=== PATIENT | female | born 1975 | race African-American/Black ===

== ENCOUNTER 2019-08-01 12:56 | Emergency (ER) | payer MEDICAID, OTHER ==
[~2019-08-01] VITALS: Ht 162.6 cm; Wt 82.0 kg
[~2019-08-01 12:56] MED LIST: ASPI-1393; HYDR25TA; LISI10TA
[2019-08-01 14:44] VITALS: BP 136/74
== END 2019-08-01 14:45 | disposition home or self-care (01) ==
LOC: ER 12:56
DX: S80.862A Insect bite (nonvenomous), left lower leg, initial encounter (principal); W57.XXXA Bitten or stung by nonvenomous insect and other nonvenomous arthropods, initial encounter; Y93.89 Activity, other specified; Y92.89 Other specified places as the place of occurrence of the external cause; Y99.8 Other external cause status; F17.290 Nicotine dependence, other tobacco product, uncomplicated; F12.10 Cannabis abuse, uncomplicated; I10 Essential (primary) hypertension; I25.2 Old myocardial infarction; Z98.890 Other specified postprocedural states; Z79.82 Long term (current) use of aspirin; Z79.899 Other long term (current) drug therapy
CPT/HCPCS: 99283

== ENCOUNTER 2019-09-04 14:02 | Emergency (ER) | payer MEDICAID ==
[~2019-09-04] VITALS: Ht 162.6 cm; Wt 73.0 kg
[2019-09-04 14:13] VITALS: BP 165/97
[2019-09-04] MEDS ORDERED: CLOP75TA4 PO (14:18)
[2019-09-04] MEDS ORDERED: ATOR-2 PO (14:18)
== END 2019-09-05 02:00 | disposition left against medical advice (07) ==
LOC: ER 14:02
DX: R07.89 Other chest pain (principal); Z53.21 Procedure and treatment not carried out due to patient leaving prior to being seen by health care provider
CPT/HCPCS: 93005

== ENCOUNTER 2019-09-11 14:49 | Emergency (ER) | payer MEDICAID ==
[~2019-09-11] VITALS: Ht 167.6 cm; Wt 91.0 kg
[~2019-09-11 14:49] MED LIST changes: -ASPI-1393; +ASPI-1497; +ATOR-2 PO; +CLOP75TA4 PO
[2019-09-11 15:19] VITALS: BP 136/108
[2019-09-11] MEDS ORDERED: LIDOCAINE 5% PATCH TOP STA (17:20)
[2019-09-11] MEDS ORDERED: HYDROCODONE/ACETAMINOPHEN 10/325MG TABLET PO ONE (17:30)
[2019-09-11] MEDS ORDERED: KETOROLAC 30MG/ML VIAL IM ONE (17:30)
== END 2019-09-11 19:28 | disposition home or self-care (01) ==
LOC: ER 14:58
DX: S43.401A Unspecified sprain of right shoulder joint, initial encounter (principal); M62.830 Muscle spasm of back; I10 Essential (primary) hypertension; I25.10 Atherosclerotic heart disease of native coronary artery without angina pectoris; F17.200 Nicotine dependence, unspecified, uncomplicated; X58.XXXA Exposure to other specified factors, initial encounter; Y93.9 Activity, unspecified; Y92.9 Unspecified place or not applicable; Z79.82 Long term (current) use of aspirin
CPT/HCPCS: 72100; 73030; 96372; 99283; 99406; J1885

== ENCOUNTER 2021-06-14 11:17 | Emergency (ER) | payer MEDICAID ==
[~2021-06-14] VITALS: Ht 167.6 cm; Wt 79.0 kg
[~2021-06-14 11:17] MED LIST changes: +CLOP-31 PO; -CLOP75TA4 PO
[2021-06-14] MEDS ORDERED: LEVETIRACETAM 500MG PREMIX 100 ML IV ONE (11:45)
[2021-06-14 12:20] VITALS: BP 135/85
[2021-06-14 12:45] LABS: BASOPHILS % 1.1 % (0.0-2.0); HEMATOCRIT. 35.5 % (36.0-48.0); HEMOGLOBIN. 11.7 g/dL (12.0-16.0); LYMPHOCYTES % 30.7 % (20.0-50.0); MEAN CORPUSCULAR HEMOGLOBIN 28.1 pg (28.0-32.0); MEAN CORPUSCULAR VOLUME 85.1 fL (81.0-99.0); MEAN PLATELET VOLUME 9.3 fl (7.4-10.4); MONOCYTES % 12.5 % (2.0-8.0); NEUTROPHILS % 52.7 % (40.0-76.0); PLATELET 203 x1000/uL (130-400); RED BLOOD CELL COUNT 4.18 mill/uL (4.2-5.4); RED CELL DISTRIBUTION WIDTH 16.4 % (11.6-14.6)
[2021-06-14] MEDS ORDERED: IOHEXOL-350 100 ML BOTTLE ONE (12:51)
[2021-06-14 12:52] LABS: PROTHROMBIN TIME 10.9 sec (9.6-11.0)
[2021-06-14 12:55] LABS: HCG SCREEN NEGATIVE
[2021-06-14 12:56] LABS: CHLORIDE 107 mEq/L (98-107)
[2021-06-14] MEDS ORDERED: ASPIRIN 325MG EC TABLET PO ONE (13:00)
[2021-06-14 13:02] LABS: ETHANOL BLOOD < 10 mg/dL
[2021-06-14 13:05] LABS: LDL CHOLESTEROL 91 mg/dL (5-100)
== END 2021-06-14 13:40 | disposition left against medical advice (07) ==
LOC: ER 11:17 → CANBEDREQ 21:02
DX: R56.9 Unspecified convulsions (principal); R51.9 Headache, unspecified; I25.2 Old myocardial infarction; I10 Essential (primary) hypertension; E78.00 Pure hypercholesterolemia, unspecified; Z98.890 Other specified postprocedural states; Z79.82 Long term (current) use of aspirin
CPT/HCPCS: 36415; 70450; 70496; 70498; 71045; 80053; 80320; 82962; 83721; 84484; 84703; 85025; 85610; 85730; 86850; 86900; 86901; 93005; 96365; 99291; J1953; Q9967; G0480

== ENCOUNTER 2024-04-19 02:41 | Inpatient (IN) | payer MEDICAID ==
[2024-04-19] VITALS (22 sets, daily range): BP systolic 101–155; BP diastolic 63–136; PULSE 65–80; RESP 16–31; TEMP 97.9–98.4
[~2024-04-19] VITALS: Ht 162.6 cm; Wt 74.8 kg
[2024-04-19] MEDS ORDERED: NITROGLYCERIN 50MG PREMIX 250 ML IV ONE (03:00)
[2024-04-19] MEDS: ONDANSETRON HCL 4MG/2ML INJ IV STA (03:24)
[2024-04-19] MEDS: ASPIRIN 81MG TABLET PO ONE (03:25)
[2024-04-19 03:33] LABS: BASOPHILS % 0.6 % (0.0-2.0); DIFFERENTIAL COMMENT 0; EOSINOPHILS % 1.4 % (0.0-5.0); HEMATOCRIT. 36.3 % (36.0-48.0); HEMOGLOBIN. 11.7 g/dL (12.0-16.0); LYMPHOCYTES % 25.1 % (20.0-50.0); MEAN CORPUSCULAR HEMOGLOBIN 25.1 pg (28.0-32.0); MEAN CORPUSCULAR HGB CONC 32.1 g/dL (31.0-37.0); MEAN CORPUSCULAR VOLUME 78.1 fL (81.0-99.0); MEAN PLATELET VOLUME 9.7 fl (7.4-10.4); MONOCYTES % 9.3 % (2.0-8.0); NEUTROPHILS % 63.6 % (40.0-76.0); PLATELET 249 x1000/uL (130-400); RED BLOOD CELL COUNT 4.65 mill/uL (4.2-5.4); RED CELL DISTRIBUTION WIDTH 19.2 % (11.6-14.6); WHITE BLOOD COUNT 6.6 x1000/uL (4.5-11.0)
[2024-04-19 03:37] LABS: CHLORIDE 110 mEq/L (98-107); POTASSIUM 3.6 mEq/L (3.5-5.1); SODIUM 141 mEq/L (136-145)
[2024-04-19 03:38] LABS: CARBON DIOXIDE 27 mEq/L (21-32)
[2024-04-19 03:43] LABS: CREATININE 1.1 mg/dL (0.6-1.0); GLUCOSE 126 mg/dL (70-105); UREA NITROGEN BLOOD 14 mg/dL (9-23)
[2024-04-19] MEDS: NITROGLYCERIN 50MG PREMIX 250 ML IV NR (03:44)
[2024-04-19 03:47] LABS: INR 0.9; PROTHROMBIN TIME 10.5 sec (9.6-11.0)
[2024-04-19 03:57] LABS: TROPONIN I HIGH SENSITIVITY 14727 ng/L (3.0-34)
[2024-04-19] MEDS ORDERED: HEPARIN 60 UNITS/KG BOLUS IV NR (04:15)
[2024-04-19] MEDS: HEPARIN 25,000 UNITS PREMIX 250 ML IV SCH (04:36)
[2024-04-19] MEDS: HEPARIN 25,000 UNITS PREMIX 250 ML IV ONE (04:41)
[2024-04-19 05:59] LABS: TROPONIN I HIGH SENSITIVITY 20603 ng/L (3.0-34)
[2024-04-19 06:26] LABS: TROPONIN I HIGH SENSITIVITY 23283 ng/L (3.0-34)
[2024-04-19] MEDS ORDERED: IPRATROPIUM/ALBUTEROL 0.5-3(2.5)MG/3ML NEB HHN PRN (07:30)
[2024-04-19] MEDS ORDERED: CLONIDINE 0.1MG TABLET PO PRN (07:30)
[2024-04-19] MEDS ORDERED: ACETAMINOPHEN 325MG TABLET PO PRN ×2 (07:30)
[2024-04-19] MEDS ORDERED: NALOXONE HCL 0.4MG/ML VIAL IV PRN (07:45)
[2024-04-19 08:33] LABS: TROPONIN I HIGH SENSITIVITY 31718 ng/L (3.0-34)
[2024-04-19 08:54] LABS: CHLORIDE 111 mEq/L (98-107); SODIUM 141 mEq/L (136-145)
[2024-04-19 08:55] LABS: CARBON DIOXIDE 22 mEq/L (21-32)
[2024-04-19 08:56] LABS: CALCIUM 8.9 mg/dL (8.7-10.4)
[2024-04-19 09:00] LABS: CREATININE 0.8 mg/dL (0.6-1.0); GLUCOSE 146 mg/dL (70-105)
[2024-04-19 09:01] LABS: UREA NITROGEN BLOOD 12 mg/dL (9-23)
[2024-04-19 09:02] LABS: ALANINE AMINOTRANSFERASE 58 IU/L (10-49); ASPARTATE AMINOTRANSFERASE 189 IU/L (<34)
[2024-04-19 09:03] LABS: BILIRUBIN TOTAL 0.5 mg/dL (0.1-1.0); PROTEIN TOTAL 6.5 g/dL (6.0-8.3)
[2024-04-19] MEDS: COLCHICINE 0.6MG TABLET PO SCH (09:27)
[2024-04-19] MEDS: METOPROLOL TARTRATE 25MG TABLET PO SCH (09:27)
[2024-04-19] MEDS: NITROGLYCERIN 50MG PREMIX 250 ML IV SCH (10:00)
[2024-04-19 10:28] LABS: *AMPHETAMINES SCREEN URINE NEGATIVE (NEGATIVE); *BENZODIAZEPINES SCREEN URINE NEGATIVE (NEGATIVE)
[2024-04-19 10:29] LABS: *BARBITURATES SCREEN URINE NEGATIVE (NEGATIVE); *COCAINE SCREEN URINE PRESUMPTIVE POSITIVE (NEGATIVE); CANNABINOID URINE SCREEN PRESUMPTIVE POSITIVE (NEGATIVE); METHADONE URINE SCREEN NEGATIVE (NEGATIVE); OPIATES URINE SCREEN NEGATIVE (NEGATIVE); PHENCYCLIDINE URINE SCREEN NEGATIVE (NEGATIVE)
[2024-04-19] MEDS ORDERED: HEPARIN BOLUS PRN aPTT <30 IV (11:00)
[2024-04-19] MEDS: HYDROCODONE/ACETAMINOPHEN 5/325MG TABLET PO PRN (12:18)
[2024-04-19] MEDS: HEPARIN BOLUS PRN aPTT 30-44 IV (13:09)
[2024-04-19] MEDS: ONDANSETRON HCL 4MG/2ML INJ IV PRN (20:49)
[2024-04-19] MEDS: ATORVASTATIN CALCIUM 40MG TABLET PO SCH (20:49)
[2024-04-20] VITALS (56 sets, daily range): BP systolic 111–144; BP diastolic 65–127; PULSE 65–97; RESP 12–34; TEMP 97.8–98.8
[2024-04-20] MEDS: DOCUSATE SODIUM 100MG CAPSULE PO PRN (02:01)
[2024-04-20 06:30] LABS: BASOPHILS % 0.6 % (0.0-2.0); DIFFERENTIAL COMMENT 0; EOSINOPHILS % 0.4 % (0.0-5.0); HEMATOCRIT. 34.7 % (36.0-48.0); HEMOGLOBIN. 11.3 g/dL (12.0-16.0); LYMPHOCYTES % 18.6 % (20.0-50.0); MEAN CORPUSCULAR HEMOGLOBIN 25.3 pg (28.0-32.0); MEAN CORPUSCULAR HGB CONC 32.6 g/dL (31.0-37.0); MEAN CORPUSCULAR VOLUME 77.9 fL (81.0-99.0); MONOCYTES % 13.1 % (2.0-8.0); NEUTROPHILS % 67.3 % (40.0-76.0); PLATELET 220 x1000/uL (130-400); RED BLOOD CELL COUNT 4.46 mill/uL (4.2-5.4); RED CELL DISTRIBUTION WIDTH 18.6 % (11.6-14.6); WHITE BLOOD COUNT 8.9 x1000/uL (4.5-11.0)
[2024-04-20 06:31] LABS: CHLORIDE 107 mEq/L (98-107); POTASSIUM 3.6 mEq/L (3.5-5.1); SODIUM 138 mEq/L (136-145)
[2024-04-20 06:32] LABS: CALCIUM 8.8 mg/dL (8.7-10.4); CARBON DIOXIDE 25 mEq/L (21-32)
[2024-04-20 06:37] LABS: CREATININE 0.8 mg/dL (0.6-1.0); GLUCOSE 139 mg/dL (70-105); TRIGLYCERIDE 96 mg/dL (0-150)
[2024-04-20 06:38] LABS: LDL CHOLESTEROL 100 mg/dL (5-100); UREA NITROGEN BLOOD 7 mg/dL (9-23)
[2024-04-20 06:39] LABS: CHOLESTEROL 165 mg/dL (<200); HDL CHOLESTEROL 56 mg/dL (>65)
[2024-04-20] MEDS: ASPIRIN 81MG TABLET PO SCH (09:52)
[2024-04-20] MEDS: METHYLPREDNISOLONE SOD SUCC 40MG/ML (ACT-O-VIAL) IV SCH (09:52)
[2024-04-20 11:27] LABS: T4 FREE 0.97 ng/dL (0.89-1.76)
[2024-04-20 12:44] LABS: TROPONIN I HIGH SENSITIVITY 35531 ng/L (3.0-34)
[2024-04-20] MEDS: SPIRONOLACTONE 25MG TABLET PO SCH (16:38)
[2024-04-20] MEDS: LISINOPRIL 5MG TABLET PO SCH (16:38)
[2024-04-21] VITALS (88 sets, daily range): BP systolic 85–163; BP diastolic 55–124; PULSE 61–86; RESP 6–29; TEMP 97.7–98.2
[2024-04-21 08:27] LABS: HEMATOCRIT. 34.7 % (36.0-48.0); MEAN CORPUSCULAR HEMOGLOBIN 24.9 pg (28.0-32.0); MEAN CORPUSCULAR HGB CONC 31.7 g/dL (31.0-37.0); MEAN CORPUSCULAR VOLUME 78.4 fL (81.0-99.0); MEAN PLATELET VOLUME 10.3 fl (7.4-10.4); PLATELET 219 x1000/uL (130-400); RED BLOOD CELL COUNT 4.43 mill/uL (4.2-5.4); WHITE BLOOD COUNT 17.7 x1000/uL (4.5-11.0)
[2024-04-21 08:31] LABS: CHLORIDE 108 mEq/L (98-107); POTASSIUM 4.3 mEq/L (3.5-5.1); SODIUM 138 mEq/L (136-145)
[2024-04-21 08:32] LABS: CARBON DIOXIDE 24 mEq/L (21-32)
[2024-04-21 08:33] LABS: CALCIUM 8.8 mg/dL (8.7-10.4)
[2024-04-21 08:35] LABS: DIFFERENTIAL COMMENT 1
[2024-04-21 08:37] LABS: CREATININE 0.8 mg/dL (0.6-1.0); GLUCOSE 150 mg/dL (70-105); UREA NITROGEN BLOOD 11 mg/dL (9-23)
[2024-04-21] MEDS: METHYLPREDNISOLONE SOD SUCC 40MG/ML (ACT-O-VIAL) IV SCH (09:31)
[2024-04-21 09:32] LABS: PLATELET ESTIMATE NORMAL
[2024-04-21 09:33] LABS: ANISOCYTOSIS 2+
[2024-04-21 12:47] LABS: HCG SCREEN NEGATIVE
[2024-04-21] MEDS ORDERED: MIDAZOLAM HCL 2 MG/2 ML VIAL ONE (12:59)
[2024-04-21] MEDS ORDERED: FENTANYL CITRATE/PF 50MCG/ML 2ML VIAL ONE (12:59)
[2024-04-21] MEDS ORDERED: LIDOCAINE HCL 1% 20ML VIAL ONE (12:59)
[2024-04-21] MEDS ORDERED: HEPARIN 1000 UNITS/ML 10ML ONE (12:59)
[2024-04-21] MEDS ORDERED: IODIXANOL 320MG/ML 100 ML BOTTLE IV ONE (12:59)
[2024-04-21] MEDS ORDERED: VERAPAMIL HCL 2.5 MG/1 ML 2ML VIAL IV ONE (12:59)
[2024-04-21] MEDS ORDERED: DIPHENHYDRAMINE 50MG/ML VIAL ONE (12:59)
[2024-04-21] MEDS ORDERED: ATROPINE SULFATE 1MG/10ML SYR IV PRN (14:45)
[2024-04-21] MEDS ORDERED: ACETAMINOPHEN 325MG TABLET PO PRN (14:45)
[2024-04-22] VITALS (53 sets, daily range): BP systolic 79–140; BP diastolic 51–118; PULSE 57–90; RESP 12–35; TEMP 97.4–97.8
[2024-04-22 05:16] LABS: HEMOGLOBIN. 10.7 g/dL (12.0-16.0); MEAN CORPUSCULAR HEMOGLOBIN 24.8 pg (28.0-32.0); MEAN CORPUSCULAR HGB CONC 31.5 g/dL (31.0-37.0); MEAN CORPUSCULAR VOLUME 78.8 fL (81.0-99.0); MEAN PLATELET VOLUME 10.6 fl (7.4-10.4); PLATELET 206 x1000/uL (130-400); RED BLOOD CELL COUNT 4.31 mill/uL (4.2-5.4); RED CELL DISTRIBUTION WIDTH 18.9 % (11.6-14.6); WHITE BLOOD COUNT 15.4 x1000/uL (4.5-11.0)
[2024-04-22 05:20] LABS: CHLORIDE 108 mEq/L (98-107); POTASSIUM 4.4 mEq/L (3.5-5.1); SODIUM 140 mEq/L (136-145)
[2024-04-22 05:21] LABS: CALCIUM 9.1 mg/dL (8.7-10.4); CARBON DIOXIDE 26 mEq/L (21-32)
[2024-04-22 05:26] LABS: CREATININE 0.8 mg/dL (0.6-1.0); GLUCOSE 157 mg/dL (70-105); UREA NITROGEN BLOOD 14 mg/dL (9-23)
[2024-04-22 05:40] LABS: DIFFERENTIAL COMMENT 1
[2024-04-22] MEDS ORDERED: HEPARIN 1000 UNITS/ML 10ML ONE (08:36)
[2024-04-22] MEDS ORDERED: VERAPAMIL HCL 2.5 MG/1 ML 2ML VIAL IV ONE (08:36)
[2024-04-22] MEDS ORDERED: LIDOCAINE HCL 1% 20ML VIAL ONE (08:36)
[2024-04-22] MEDS ORDERED: IODIXANOL 320MG/ML 100 ML BOTTLE IV ONE ×2 (08:37→09:46)
[2024-04-22] MEDS ORDERED: MIDAZOLAM HCL 2 MG/2 ML VIAL ONE (09:05)
[2024-04-22] MEDS ORDERED: FENTANYL CITRATE/PF 50MCG/ML 2ML VIAL ONE (09:05)
[2024-04-22] MEDS ORDERED: DIPHENHYDRAMINE 50MG/ML VIAL ONE (09:06)
[2024-04-22] MEDS ORDERED: EPINEPHRINE 0.1MG/ML (1:10,000) 10ML SYR ONE (09:09)
[2024-04-22] MEDS ORDERED: CLOPIDOGREL 75MG TABLET ONE (09:56)
[2024-04-22] MEDS ORDERED: ACETAMINOPHEN 325MG TABLET PO PRN (10:15)
[2024-04-22] MEDS ORDERED: ATROPINE SULFATE 1MG/10ML SYR IV PRN (10:15)
[2024-04-22 11:12] LABS: PLATELET ESTIMATE NORMAL
[2024-04-22 11:13] LABS: ANISOCYTOSIS 2+; MICROCYTOSIS 1+
[2024-04-23 07:27] LABS: BASOPHILS % 0.2 % (0.0-2.0); DIFFERENTIAL COMMENT 0; HEMATOCRIT. 38.6 % (36.0-48.0); HEMOGLOBIN. 12.4 g/dL (12.0-16.0); LYMPHOCYTES % 13.7 % (20.0-50.0); MEAN CORPUSCULAR HEMOGLOBIN 25.4 pg (28.0-32.0); MEAN CORPUSCULAR HGB CONC 32.1 g/dL (31.0-37.0); MEAN PLATELET VOLUME 10.4 fl (7.4-10.4); MONOCYTES % 7.2 % (2.0-8.0); NEUTROPHILS % 78.9 % (40.0-76.0); PLATELET 243 x1000/uL (130-400); RED BLOOD CELL COUNT 4.89 mill/uL (4.2-5.4); RED CELL DISTRIBUTION WIDTH 19.3 % (11.6-14.6); WHITE BLOOD COUNT 6.5 x1000/uL (4.5-11.0)
[2024-04-23 07:37] LABS: CARBON DIOXIDE 28 mEq/L (21-32); CHLORIDE 107 mEq/L (98-107); POTASSIUM 4.8 mEq/L (3.5-5.1); SODIUM 139 mEq/L (136-145)
[2024-04-23 07:38] LABS: CALCIUM 9.5 mg/dL (8.7-10.4)
[2024-04-23 07:43] LABS: CREATININE 0.8 mg/dL (0.6-1.0); GLUCOSE 142 mg/dL (70-105); UREA NITROGEN BLOOD 14 mg/dL (9-23)
[2024-04-23] MEDS: CLOPIDOGREL 75MG TABLET PO SCH (08:23)
[2024-04-23] MEDS ORDERED: ASPI-1160 PO (10:50)
[2024-04-23] MEDS ORDERED: LISI-186 PO (10:50)
[2024-04-23] MEDS ORDERED: SPIR25TA PO (10:50)
[2024-04-23] MEDS ORDERED: CLOP-31 PO (10:50)
[2024-04-23 11:12] VITALS: BP 125/89; PULSE 88; TEMP 97.6; O2SAT 98
[2024-04-23] MEDS ORDERED: MED4 MT (11:40)
== END 2024-04-23 12:17 | disposition home or self-care (01) | DRG 793 ==
LOC: ER 02:41 → CVICU 04:34 → EDBEDREQTM 04:47 → EDBEDREQSVC 04:47 → EDBEDREQ 04:47 → 8WST 04-22 14:20
PROVIDERS: ADMIT Internal Medicine; ATTEND Internal Medicine
PROC: 4A023N7 Measurement of Cardiac Sampling and Pressure, Left Heart, Percutaneous Approach (ICD-10-PCS; principal; 2024-04-22)
PROC: 027135Z Dilation of Coronary Artery, Two Arteries with Two Drug-eluting Intraluminal Devices, Percutaneous Approach (ICD-10-PCS; 2024-04-22)
PROC: B2111ZZ Fluoroscopy of Multiple Coronary Arteries using Low Osmolar Contrast (ICD-10-PCS; 2024-04-22)
DX: T40.5X1A Poisoning by cocaine, accidental (unintentional), initial encounter (principal); I21.4 Non-ST elevation (NSTEMI) myocardial infarction; I42.0 Dilated cardiomyopathy; J68.0 Bronchitis and pneumonitis due to chemicals, gases, fumes and vapors; N17.9 Acute kidney failure, unspecified; I50.22 Chronic systolic (congestive) heart failure; Z91.148 Patient's other noncompliance with medication regimen for other reason; F14.90 Cocaine use, unspecified, uncomplicated; D72.821 Monocytosis (symptomatic); E78.00 Pure hypercholesterolemia, unspecified; F17.210 Nicotine dependence, cigarettes, uncomplicated; I11.0 Hypertensive heart disease with heart failure; I25.10 Atherosclerotic heart disease of native coronary artery without angina pectoris; R07.89 Other chest pain; Z20.822 Contact with and (suspected) exposure to COVID-19
CPT/HCPCS: 36415; 71045; 80048; 80053; 80061; 80305; 83036; 83880; 84439; 84443; 84481; 84484; 84703; 85025; 85347; 87420; 87426; 87804; 92928; 92929; 93005; 93306; 93454; 93458; 99291; C1725; C1769; C1874; C1887; C1893; J1200; J1644; J2250; J2405; J2920; J3010; J3490; Q9967